=== PATIENT | male | born 1985 | race Caucasian/White ===

== ENCOUNTER 2017-05-03 19:13 | Emergency (ER) | payer MEDICAID ==
[~2017-05-03] VITALS: Ht 172.7 cm; Wt 58.1 kg
--- NOTE | 2017-05-03 19:56 | NUR ---
PT BIB FAMILY C/O LEFT ANKLE PAIN S/P CLOSED METAL GATE ON FOOT, 1HR MUFFLER HAND, TDAP UTD. NAD NOTED, VSS. WAITING FOR MD MARMOLEJO.
--- NOTE | 2017-05-03 20:02 | NUR ---
XRAY AT BS
[2017-05-03] MEDS ORDERED: IBUPROFEN 600 MG TABLET PO ONE ×2 (20:27→20:30)
[2017-05-03 20:45] VITALS: BP 111/72
--- NOTE | 2017-05-03 20:45 | NUR ---
Patient discharged to home in stable condition. Written and verbal after care instructions given. Patient verbalizes understanding of instruction.Crutches dispensed. Pt instructed on proper use of crutches. Patient able to demonstrate correct use of crutches.
== END 2017-05-03 20:47 | disposition home or self-care (01) ==
LOC: ER 19:16
DX: S90.02XA Contusion of left ankle, initial encounter (principal); F17.200 Nicotine dependence, unspecified, uncomplicated; W20.8XXA Other cause of strike by thrown, projected or falling object, initial encounter; Y93.89 Activity, other specified; Y92.89 Other specified places as the place of occurrence of the external cause; Y99.9 Unspecified external cause status
CPT/HCPCS: 73610-TC; A4606; Z7610